=== PATIENT | female | born 2000 | race Hispanic/Latino ===

== ENCOUNTER 2020-01-16 08:47 | Emergency (ER) | payer OTHER ==
[2020-01-16] MEDS ORDERED: Ibuprofen 800 MG TAB ONE (09:26)
[2020-01-16] MEDS ORDERED: Acetaminophen 325 MG TAB ONE (09:26)
--- NOTE | 2020-01-16 10:35 | RAD ---
RADIOGRAPH CHEST 1 VIEW: DATE: 01/16/2020 HISTORY: 19-year-old female with fever and dyspnea FINDINGS: The visualized lung walls are clear. The cardiomediastinal silhouette and hilar shadows are normal. The lateral costophrenic angles are sharp. The osseous structures appear normal. There is no pneumothorax. IMPRESSION: Negative.
[2020-01-16 19:33] LABS: SARS-CoV-2 MS2 Positive; SARS-CoV-2 N Gene Negative; SARS-CoV-2 S Gene Negative; SARS-CoV-2 by NAA Not Detected (NotDetected); SARS-CoV-2 orf1ab Negative
== END 2020-01-16 11:20 | disposition home or self-care (01) ==
LOC: ERS 08:47
DX: J02.9 Acute pharyngitis, unspecified (principal); Z20.828 Contact with and (suspected) exposure to other viral communicable diseases; F41.9 Anxiety disorder, unspecified; F32.9 Major depressive disorder, single episode, unspecified
CPT/HCPCS: 71045; 87081; 87430; 87635; 93005; U0003